=== PATIENT | female | born 1990 | race Caucasian/White ===

== ENCOUNTER 2018-01-09 01:00 | Inpatient (IN) ==
[2018-01-09] MEDS ORDERED: ACETAMINOPHEN 325 MG TABLET PO ONE (03:15)
[2018-01-09] MEDS ORDERED: FOSFOMYCIN 3 GRAM PACKET PO ONE (04:05)
[2018-01-09] MEDS ORDERED: CITRIC ACID/SODIUM CITRATE 30ml PO ONE ×2 (05:38→05:44)
[2018-01-09] MEDS ORDERED: FAMOTIDINE PB 20 MG/50 ML BAG IV ONE ×2 (05:38→05:44)
[2018-01-09] MEDS ORDERED: GENTAMICIN PB 120 MG/100 ML BAG IV ONE (05:44)
[2018-01-09] MEDS ORDERED: CLINDAMYCIN PB 600 MG/50 ML BAG IV ONE (05:44)
[2018-01-09] MEDS: LR 1,000 ML IV SCH ×2 (06:06→09:33)
[2018-01-09 06:21] VITALS: BMI 27.4
[2018-01-09] MEDS ORDERED: SALINE FLUSH 10ml SYRINGE ONE ×3 (08:53→10:03)
[2018-01-09] MEDS ORDERED: EPHEDRINE 50mg/ml INJECTION ONE (09:05)
[2018-01-09] MEDS ORDERED: PHENYLEPHRINE INJ 10 MG/ML VIAL IV ONE (09:07)
[2018-01-09] MEDS ORDERED: FentaNYL 100 MCG/2 ML INJECTION ONE (09:10)
[2018-01-09] MEDS ORDERED: MORPHINE SULFATE PF 5mg/10ml INJ (Duramorph) ONE (09:10)
[2018-01-09] MEDS ORDERED: LIDOCAINE 2% (100mg/5mL) 5ml PF SDV ONE (09:11)
[2018-01-09] MEDS ORDERED: EPINEPHrine 1mg/ml (1:1000) vial ONE (09:11)
[2018-01-09] MEDS ORDERED: BUPIVACAINE 0.75%/DEXTROSE 8.5% SPINAL 2 ML AMPULE IJ ONE (09:11)
--- NOTE | 2018-01-09 09:12 | Anesthesia Preoperative Report ---
Anesthesia Epidural/Spinal Rec - Date and Time Date: 01/09/18 Procedure: Plan: Spinal - Vital Signs Vital Signs: Temperature 97.6 F 01/09/18 05:53 Pulse Rate 60 01/09/18 05:53 Respiratory Rate 16 01/09/18 05:53 Blood Pressure 123/80 01/09/18 05:53 /Para: P:1 - Medictaions & Allergies Inpatient Medications: Current Medications Lactated Ringer's (Lactated Ringers) 1,000 mls @ 150 mls/hr IV .[id number] [facility] Last Admin: 01/09/18 06:06 Dose: 150 mls/hr Allergies/Adverse Reactions: Allergies Allergy/AdvReac Type Severity Reaction Status Date / Time Penicillins Allergy Unknown Hives Verified 01/09/18 06:09 - Home Medications Home Medications: Home Medications Medication Instructions Recorded Confirmed Type FLUoxetine [Prozac] 20 mg PO DAILY 05/25/17 12/29/17 History Levothyroxine Sodium 100 mcg PO DAILY 05/25/17 12/29/17 History Pnv No.95/Ferrous Fum/Folic AC 1 tab PO DAILY 05/25/17 12/29/17 History [ Multivitamin Tablet] Loratadine [Claritin] 1 tab PO PRN PRN 12/26/17 12/29/17 History - Medical History Renal/Endocrine: Reports: Thyroid Disease (HYPOTHYROID) Other History: Reports: Now - Surgical History Reproductive Surgery/Treatment: Reports: Section Anesthesia Reactions: None Hx Family Anesthesia Reaction: No History of Motion Sickness: No - Social History Smoking Status: Never smoker Second Hand Exposure: No Substance Use Type: does not use Alcohol Intake Frequency: does not drink - Pertinent Findings Lab Data: CBC and BMP 01/09/18 02:08 01/09/18 02:08 BMP 01/09/18 02:08 Sodium 140 Potassium 3.7 Chloride 107 Carbon Dioxide 22 BUN 6.0 L Creatinine 0.5 L Glucose 83 Calcium 9.0 Liver Function 01/09/18 Range/Units 02:08 Total Bilirubin 0.50 (0.20-1.30) MG/DL AST 32 (14-36) U/L ALT 13 (1-35) U/L Alkaline Phosphatase 248 H (38-126) U/L Albumin 3.4 L (3.5-5.0) g/dL Urine 01/09/18 Range/Units 02:08 Urine Color Yellow (YELLOW) Urine Clarity Sl cloudy Urine pH 6.0 (5.0-8.0) Ur Specific Reading 1.025 (1.015-1.025) Urine Protein Negative (NEGATIVE) Urine Glucose (UA) Negative (NEGATIVE) EKG Rhythm: Normal Sinus Rhythm - Physical Exam Respiratory Exam: lungs clear Cardiovascular Exam: regular rate and rhythm, no murmur - Airway Assessment Mallampati Score: I TMD: 3 Fingerbreadths Neck Extension: good Overall Assessment: no airway concerns - ASA ASA Score: 2 - Discussion Discussion: Discussed risks/options/alternatives of anesthesia and questions answered. Patient consents. Nursing pain assessment noted. Anesthesia Discussion: spouse Attestation Statement: Prior to the delivery of any anesthetic medication, I examined the patient, developed the plan, obtained the patient's consent and discussed the risk and benefits of the procedure with the patient/guardian.
[2018-01-09] MEDS ORDERED: OXYTOCIN BOLUS BAG 30 UNIT/500 ML ML IV SCH (10:00)
[2018-01-09] MEDS ORDERED: CALCIUM CARBONATE Chewable 500mg TABLET PO PRN (10:27)
[2018-01-09] MEDS ORDERED: SIMETHICONE 80 MG CHEWABLE TABLET PO PRN (10:27)
[2018-01-09] MEDS ORDERED: ACETAMINOPHEN 500 MG TABLET PO PRN (10:27)
[2018-01-09] MEDS ORDERED: DiphenhydrAMINE 25 MG CAPSULE PO PRN (10:27)
[2018-01-09] MEDS ORDERED: HYDROCORTISONE 2.5% CREAM 30gm RECTALLY PRN (10:27)
[2018-01-09] MEDS ORDERED: D5LR 1,000 ML IV SCH (10:30)
[2018-01-09] MEDS: OXYTOCIN DRIP 30 UNIT/500 ML ML IV SCH ×2 (10:30→14:28)
--- NOTE | 2018-01-09 10:34 | Operative Note ---
Operative Note - Date of Operation Date of Operation: 01/09/18 - General : 2 Para: 1 Expected Date of Delivery: 01/19/18 - Preoperative Diagnosis Previous Section, Gestational Hypertension - Postoperative Diagnosis same as preoperative - Procedure Repeat - Surgeon Surgeon: Liu Willson DO - Boiling House Hand OB Boiling House Hand: Giuliano Rose, Surg. Assist - Anesthesia Anesthesia Provider: Michael Palacios CRNA Anesthesia Type: Spinal - Estimated Blood Loss Estimated Blood Loss:: 700 - Findings Findings: viable male - APGARS : 6/7/9 - Weight Tornado Weight (grams): 3738 - Tornado Name Tornado Name: Bradly - Indications Indications: GHTN previous C/S x 1 desires RPLTCS - Description of Procedure Description of Procedure: See dictation. Ref #[id number] Report ID [id number]
[2018-01-09] MEDS ORDERED: NALOXONE 2 MG/2 ML INJECTION PFS IVP PRN (11:03)
[2018-01-09] MEDS: Oxycodone/Acetaminophen 5/325 1 TAB PO PRN ×3 (13:06→21:03)
--- NOTE | 2018-01-09 14:01 | Operative Note ---
DATE OF SERVICE 01/09/2018 PREOPERATIVE DIAGNOSES 1. Term intrauterine at 38 weeks. 2. Gestational hypertension. 3. Hypothyroid. 3. Subchorionic hemorrhage. POSTOPERATIVE DIAGNOSIS 1. Term intrauterine at 38 weeks. 2. Gestational hypertension. 3. Hypothyroid. 4. Subchorionic hemorrhage. 5. delivered. PROCEDURE Repeat low transverse section. SURGEON Dr. Liu Willson, LEAD SOFTWARE DEVELOPMENT ENGINEER Giuliano Rose, Child Support Specialist ANESTHESIA PROVIDER Michael Palacios CRNA. ANESTHESIA TYPE Spinal. ESTIMATED BLOOD LOSS 700 ml FINDINGS A viable male named Bradly with a weight of 3738 and Apgars of 6/7/ 9. COMPLICATIONS None. INDICATIONS FOR PROCEDURE This is a G2, P1 that presented to Maternal Child at 38 weeks gestational age and was found to have elevated blood pressures, normal dip without protein and diagnosis was for gestational hypertension. Since she was term and past 37 weeks, this was a medically indicated delivery. Risks, benefits and alternatives to repeat low transverse section were discussed with the patient. Questions were elicited and answered and she decided to proceed. DESCRIPTION OF PROCEDURE The patient was taken to the operating theatre where spinal anesthesia was obtained without difficulty. She was then placed in the dorsal supine position with a leftward tilt. The old keloid scar was removed at the Pfannenstiel incision and the remainder of the layers were taken down to the fascia with the scalpel. The fascia was incised in the midline and the fascial incision was extended laterally with the Ayala scissors. The superior aspect of the fascial incision was grasped with a Omid clamp, elevated and the rectus muscles dissected off sharply with the scalpel and the Ayala scissors. Attention was turned to the inferior aspect of the fascial incision which was grasped in a similar fashion and the rectus muscles dissected off sharply with the Ayala scissors. At this time the rectus muscles were bluntly in the midline and the peritoneum was entered bluntly. The peritoneal incision was then extended superiorly and inferiorly with good visualization of bladder. The bladder blade was inserted and the vesicouterine peritoneum was identified, picked up with the [place] pickups and entered sharply with the Metzenbaum scissors. This incision was then extended laterally and the bladder flap was created digitally. The bladder blade was then reinserted and the uterine incision was made in a transverse fashion. The uterine incision was then extended laterally with cephalad caudad motion. Amniotomy was performed noting clear fluid and the 's head was delivered atraumatically. Nose and mouth were suctioned and the remainder of the infant was delivered and taken to the nurse who was waiting. At this time the placenta was expressed. The uterus was exteriorized and cleared of all clot and debris and the uterine incision was repaired with O Monocryl in a running fashion. A second layer of the same suture was used in imbricating fashion and excellent hemostasis was noted. The bladder flap was repaired with 3-0 Vicryl in a running fashion and the peritoneum was closed with 3-0 Monocryl in a running fashion. The fascia was then closed with 0 Vicryl in a running fashion. Skin was closed with 4-0 Monocryl and Dermabond. The patient tolerated the procedure well. Sponge, lap and needle counts correct x 2 and the patient was taken to the recovery room in stable condition. CA
[2018-01-09] MEDS: SIMETHICONE 80 MG CHEWABLE TABLET PO SCH ×4 (14:29→21:03)
[2018-01-10] MEDS: Oxycodone/Acetaminophen 5/325 1 TAB PO PRN ×5 (01:37→21:44)
--- NOTE | 2018-01-10 06:57 | Anesthesia Postoperative Note ---
- Date and Time Date: 01/10/18 Time: 06:57 - Status Patient Participated in Evaluation: Patient Participated in Person Vital Signs: Temperature 97.5 F 01/10/18 05:30 Pulse Rate 66 01/10/18 05:30 Respiratory Rate 16 01/10/18 05:30 Blood Pressure 126/79 01/10/18 05:30 Pulse Oximetry 99 01/10/18 05:30 Respiratory Function: Airway Patent Cardiovascular Function: Regular Pulse Mental Status: Alert and Oriented Pain Intensity: 0 Hydration: Taking PO Fluids Complications During Recover: None Apparent - Follow-Up Instructions Instructions: Per Surgeon
[2018-01-10] MEDS: DOCUSATE CALCIUM 240 MG CAPSULE PO SCH (10:07)
[2018-01-10] MEDS: SIMETHICONE 80 MG CHEWABLE TABLET PO SCH ×3 (10:07→15:39)
--- NOTE | 2018-01-10 10:39 | OB/GYN Progress Note ---
OB-PP Progress Note - General PPD1 POD:: POD1 Maternal Group B Strep: Negative Maternal blood type: O+ Maternal Rubella Status: Immune - Subjective Date: 01/10/18 Lochia: Minimal Pain: controlled Voiding: voiding Nausea or Vomiting Present: No - Objective Vital Signs: Last Vital Signs Temp 97.6 F 01/10/18 09:25 Pulse 74 01/10/18 09:25 Resp 18 01/10/18 09:25 BP 126/75 01/10/18 09:25 Pulse Ox 97 01/10/18 09:25 Urine Output: good General: alert and oriented Abdomen: fundus firm, non-tender Incision: normal, clean Extremities: non-tender Edema: none Laboratory: Laboratory Results - last 24 hr 01/10/18 06:09 WBC 8.2 RBC 4.17 Hgb 11.5 L Hct 35.7 L MCV 85.6 MCH 27.6 MCHC 32.2 RDW Std Deviation 47.7 Plt Count 242 MPV 11.1 - Assessment Assessment: SP, Repeat C/S - Plan Plan: routine care Expected date of discharge: 01/11/18
[2018-01-10] MEDS: IBUPROFEN 800 MG TABLET PO PRN ×2 (11:17→21:44)
[2018-01-11] MEDS: Oxycodone/Acetaminophen 5/325 1 TAB PO PRN ×4 (04:05→21:01)
[2018-01-11] MEDS: IBUPROFEN 800 MG TABLET PO PRN ×2 (08:32→20:59)
[2018-01-11] MEDS: DOCUSATE CALCIUM 240 MG CAPSULE PO SCH (09:40)
[2018-01-11] MEDS: SIMETHICONE 80 MG CHEWABLE TABLET PO SCH ×4 (09:40→23:29)
--- NOTE | 2018-01-11 09:52 | Ultrasound Report ---
Indication: post pardum left leg cramping and knot PROCEDURE: US venous doppler LE LT: Encounter: Initial Comparison: None Technique: Color Doppler duplex and grayscale sonographic imaging of the left lower extremity was performed. Findings: There is no evidence for acute deep venous thrombosis in the left thigh. Specifically, serial graded compression was performed from the inguinal ligament to the popliteal bifurcation, on the left thigh, demonstrating appropriate compressibility of the deep venous system. In addition, color and pulsed Doppler demonstrate appropriate spontaneous flow, variation with respiration, and augmentation with calf compression. At the ankle, normal flow is identified in the posterior tibial veins; these vessels are also normal in caliber. Impression: No evidence of acute DVT in the left lower limb. There is a preliminary report by [facility]. .
--- NOTE | 2018-01-11 11:02 | OB/GYN Progress Note ---
OB-PP Progress Note - General PPD2 Maternal Group B Strep: Negative Maternal blood type: O+ Maternal Rubella Status: Immune - Subjective Date: 01/11/18 Lochia: Minimal Pain: controlled Voiding: voiding Nausea or Vomiting Present: No - Objective Vital Signs: Last Vital Signs Temp 97.9 F 01/11/18 07:40 Pulse 65 01/11/18 07:40 Resp 18 01/11/18 07:40 BP 125/76 01/11/18 07:40 Pulse Ox 98 01/11/18 07:40 Urine Output: good General: alert and oriented Abdomen: fundus firm, non-tender Incision: dry Extremities: non-tender Edema: none - Assessment Assessment: SP, Repeat C/S - Plan Plan: routine care Expected date of discharge: 01/12/18
[2018-01-12] MEDS: IBUPROFEN 800 MG TABLET PO PRN (07:01)
[2018-01-12 08:22] VITALS: RESP 16; O2SAT 99
--- NOTE | 2018-01-12 10:13 | OB/GYN Progress Note ---
OB-PP Progress Note - General PPD3 POD:: POD3 Maternal Group B Strep: Negative Maternal blood type: O+ Maternal Rubella Status: Immune - Subjective Date: 01/12/18 Lochia: Minimal Pain: controlled Voiding: voiding Nausea or Vomiting Present: No - Objective Vital Signs: Last Vital Signs Temp 97.9 F 01/12/18 06:30 Pulse 84 01/12/18 06:30 Resp 16 01/12/18 06:30 BP 128/85 01/11/18 20:45 Pulse Ox 99 01/12/18 06:30 Urine Output: good General: alert and oriented Cardiovascular: regular rate,rhythm Respiratory: non-labored Abdomen: fundus firm, non-tender Incision: normal, clean, dry, intact Extremities: non-tender Edema: none - Assessment Assessment: SP, Repeat C/S - Plan Plan: routine care, discharge home
[2018-01-12] MEDS: DOCUSATE CALCIUM 240 MG CAPSULE PO SCH (10:50)
[2018-01-12] MEDS: SIMETHICONE 80 MG CHEWABLE TABLET PO SCH ×2 (10:50→11:04)
[2018-01-12 11:06] VITALS: BP 137/90; PULSE 95; TEMP 98
== END 2018-01-12 10:59 | disposition home or self-care (01) | DRG 765 ==
LOC: MC 04:30
PROVIDERS: ADMIT Obstetrics & Gynecology; ATTEND Obstetrics & Gynecology